=== PATIENT | female | born 1945 | race Caucasian/White ===

== ENCOUNTER → 2019-10-22 | Outpatient (CLI) | payer SELFPAY | PROVIDERS: Visit Provider Family Medicine | DX: C67.9 Malignant neoplasm of bladder, unspecified (principal) | CPT/HCPCS: 80053; 83735; 85025 ==

== ENCOUNTER 2019-11-11 17:34 | Outpatient (CLI) | payer MEDICARE, SELFPAY ==
[2019-11-11 19:51] LABS: Basophils % 0.3 %; Eosinophils # 0.1 10^3/uL (0.0-0.8); Eosinophils % 3.6 %; Hematocrit 31.5 % (37.0-47.0); Hemoglobin 9.3 g/dL (11.5-15.3); Lymphocytes # 1.4 10^3/uL (0.8-4.8); Mean Corpuscular HGB Conc 29.5 g/dL (30.0-36.0); Mean Corpuscular Hemoglobin 26.8 pg (28.0-34.0); Mean Corpuscular Volume 90.8 fL (81-99); Mean Platelet Volume 10.8 fL (7.4-10.4); Monocytes # 0.5 10^3/uL (0.2-0.9); Monocytes % 13.4 %; Neutrophils # 1.4 10^3/uL (1.8-7.7); Neutrophils % 40.1 %; Nucleated Red Blood Cells % 0 %; Platelet Count 361 10^3/cmm (130-400); Red Blood Count 3.47 10^6/uL (4.1-5.3); Red Cell Distribution Width 24.4 % (12.1-15.1); White Blood Count 3.4 10^3/uL (4.0-10.0)
[2019-11-11 20:30] LABS: Alanine Aminotransferase 13 U/L (0-33); Albumin Level 3.2 g/dL (3.5-5.2); Alkaline Phosphatase 108 IU/L (35-105); Anion Gap 16.1 (5-19); Aspartate Amino Transferase 11 U/L (0-32); Blood Urea Nitrogen 13 mg/dL (8-23); Calcium 9.2 mg/Dl (8.8-10.2); Carbon Dioxide 26 mmol/L (22-29); Chloride 102 mmol/L (98-107); Globulin 2.7 g/dL (1.3-4.6); Glucose 114 mg/dL (74-106); Magnesium 2.2 mg/dL (1.7-2.3); Potassium 4.1 mmol/L (3.5-5.1); Sodium 140 mmol/L (136-145); Total Bilirubin 0.2 mg/dL (0.15-1.2); Total Protein 5.9 g/dL (6.6-8.7)
== END 2019-11-11 17:35 | disposition home or self-care (01) ==
LOC: LAB 17:45
PROVIDERS: Visit Provider Specialist
DX: C79.11 Secondary malignant neoplasm of bladder (principal)
CPT/HCPCS: 80053; 83735; 85025; 86304

== ENCOUNTER 2020-09-15 19:15 | Outpatient (CLI) | payer MEDICARE, SELFPAY ==
[2020-09-15 19:36] LABS: Hematocrit 37.6 % (37.0-47.0); Hemoglobin 11.9 g/dL (11.5-15.3); Mean Corpuscular HGB Conc 31.6 g/dL (30.0-36.0); Mean Corpuscular Hemoglobin 29.7 pg (28.0-34.0); Mean Corpuscular Volume 93.8 fL (81-99); Mean Platelet Volume 11.2 fL (7.4-10.4); Platelet Count 207 10^3/cmm (130-400); Red Blood Count 4.01 10^6/uL (4.1-5.3); Red Cell Distribution Width 16.5 % (12.1-15.1); White Blood Count 8.3 10^3/uL (4.0-10.0)
[2020-09-15 20:41] LABS: Absolute Segmented Neutrophil 6.2 10/cmm (1.6-7.1); Eosinophils 0 %; Lymphocytes 15 %; Segmented Neutrophils 75 %; Total Cells Counted 100 (0-100)
[2020-09-15 20:42] LABS: Absolute Neutrophil 6.2 10^3/cmm (1.4-6.5); Burr Cells 1+; Platelet Estimate Normal (Normal); Poikilocytosis 1+
== END 2020-09-15 19:16 | disposition home or self-care (01) ==
LOC: LAB 19:16
PROVIDERS: Visit Provider Internal Medicine Hematology & Oncology
DX: C56.2 Malignant neoplasm of left ovary (principal); N13.39 Other hydronephrosis; N32.9 Bladder disorder, unspecified
CPT/HCPCS: 85007; 85027